=== PATIENT | male | born 1985 | race Caucasian/White ===

== ENCOUNTER 2017-01-08 00:37 | Emergency (ER) | payer OTHER ==
[2017-01-08 00:53] VITALS: BP 132/79
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
--- NOTE | 2017-01-09 17:30 | CR ---
Chest: Two views of the chest were obtained. Comparison: No previous chest x-ray. Heart size and mediastinum are normal. Lungs are clear with no acute infiltrates. Bony structures are within normal limits for the patient's age. Impression: 1. Nothing acute is identified on two-view chest x-ray. Diagnostic code #1
== END 2017-01-08 02:22 | disposition home or self-care (01) ==
LOC: JD.ED 00:37
DX: S20.219A Contusion of unspecified front wall of thorax, initial encounter (principal); Y04.0XXA Assault by unarmed brawl or fight, initial encounter
CPT/HCPCS: 36415; 71020; 71020-26; 80048; 83735; 93005; 99282; 99285-25

== ENCOUNTER 2019-06-26 19:59 | Emergency (ER) | payer OTHER ==
[2019-06-26 20:08] VITALS: BP 111/68; PULSE 74
[2019-06-26] MEDS ORDERED: traMADol 50 MG Tab PO ONE (20:12)
--- NOTE | 2019-06-26 21:15 | EDM.PDOC ---
ED HPI GENERAL MEDICAL PROBLEM - General Chief Complaint: Upper Extremity Injury/Pain Stated Complaint: INJURED LEFT ELBOW Time Seen by Provider: 06/26/19 20:06 Source of Information: Reports: Patient History Limitations: Reports: No Limitations - History of Present Illness INITIAL COMMENTS - FREE TEXT/NARRATIVE: The patient presents after a fall for left elbow pain and right chest pain. He was taking the garbage out and he slipped on the ice and fell and landed on his left elbow and right lateral chest. It knocked the wind out of him. He did not hit his head or hurt his neck. He has no abdominal pain. He has no hematuria. Onset: Sudden Duration: Minutes: Location: Reports: Chest, Upper Extremity, Left (elbow) Quality: Reports: Sharp Severity: Moderate Improves with: Reports: Immobilization Worsens with: Reports: Movement Context: Reports: Trauma (Slipped and fell on the ice) Associated Symptoms: Reports: Chest Pain. Denies: Cough, Fever/Chills, Headaches, Nausea/Vomiting, Shortness of Breath Left Arm Pain Score (Numeric/FACES): 8 - Related Data Allergies Allergy/AdvReac Type Severity Reaction Status Date / Time No Known Allergies Allergy Verified 06/26/19 20:08 Home Meds: Home Meds Hydrocodone/Acetaminophen [Hydrocodon-Acetaminophen 5-325] 1 - 2 each PO Q6HR PRN #6 tablet 06/26/19 [Rx] Past Medical History - Past Health History Medical/Surgical History: Denies Medical/Surgical History Social & Family History - Family History Family Medical History: Noncontributory - Tobacco Use Smoking Status *Q: Never Smoker Second Hand Smoke Exposure: No - Caffeine Use Caffeine Use: Reports: Coffee, Soda - Recreational Drug Use Recreational Drug Use: No Review of Systems - Review of Systems Review Of Systems: See Below Constitutional: Reports: No Symptoms Eyes: Reports: No Symptoms Ears: Reports: No Symptoms Nose: Reports: No Symptoms Mouth/Throat: Reports: No Symptoms Respiratory: Reports: No Symptoms Cardiovascular: Reports: Chest Pain (Right lateral) GI/Abdominal: Reports: No Symptoms ED EXAM, GENERAL - Physical Exam Exam: See Below Exam Limited By: No Limitations General Appearance: Alert, No Apparent Distress Ears: Normal External Exam Nose: Normal Inspection Head: Atraumatic, Normocephalic Neck: Normal Inspection, Supple, Non-Tender Respiratory/Chest: No Respiratory Distress, Lungs Clear, Normal Breath Sounds Cardiovascular: Regular Rate, Rhythm, No Edema, No Murmur, Other (Right lateral chest pain upon palpation with an abrasion) GI/Abdominal: Soft, Non-Tender, No Organomegaly, No Mass Extremities: Other (Pain upon palpation to the left medial elbow with an abrasion. Good sensation and pulses distally.) Course - Vital Signs Last Recorded V/S: Last Vital Signs Temp 97.2 F 06/26/19 20:05 Pulse 74 06/26/19 20:05 Resp 24 H 06/26/19 20:05 BP 111/68 06/26/19 20:05 Pulse Ox 100 06/26/19 20:05 - Orders/Labs/Meds Orders: Active Orders 24 hr Category Date Time Status Elbow Min 3V Lt [CR] Stat Exams 06/26/19 20:12 Taken Ribs 2V wo Chest Rt [CR] Stat Exams 06/26/19 20:11 Taken Meds: Medications Discontinued Medications Generic Name Dose Route Start Last Admin Trade Name Freq PRN Reason Stop Dose Admin Tramadol HCl 50 mg 06/26/19 20:12 06/26/19 20:34 Ultram PO 06/26/19 20:13 50 mg ONETIME ONE Administration - Re-Assessments/Exams Free Text/Narrative Re-Assessment/Exam: 06/26/19 21:12 I did an x-ray of his elbow and right ribs and he has no fracture or pneumothorax. Departure - Departure Time of Disposition: 21:15 Disposition: Home, Self-Care 01 Condition: Good Clinical Impression: Fall Qualifiers: Encounter type: initial encounter Qualified Code(s): W19.XXXA - Unspecified fall, initial encounter Contusion of left elbow Qualifiers: Encounter type: initial encounter Qualified Code(s): S50.02XA - Contusion of left elbow, initial encounter Contusion of rib on right side Qualifiers: Encounter type: initial encounter Qualified Code(s): S20.211A - Contusion of right front wall of thorax, initial encounter - Discharge Information *PRESCRIPTION DRUG MONITORING PROGRAM REVIEWED*: No *COPY OF PRESCRIPTION DRUG MONITORING REPORT IN PATIENT FLAQUITA: No Prescriptions: Hydrocodone/Acetaminophen [Hydrocodon-Acetaminophen 5-325] 1 - 2 each PO Q6HR PRN #6 tablet PRN Reason: Pain Referrals: Tre Griffin Jr, MD [Primary Care Provider] - 1 Week Additional Instructions: Ice the areas that hurt for 15 minutes 3 times per day for 2 days. Take tylenol or motrin as needed for pain. If that does not help, try the hydrocodone. Please return if you are worse. Sepsis Event Note - Evaluation Sepsis Screening Result: No Definite Risk - Focused Exam Vital Signs: Vital Signs Temp Pulse Resp BP Pulse Ox 06/26/19 20:05 97.2 F 74 24 H 111/68 100 Date Exam was Performed: 06/26/19 Time Exam was Performed: 21:08 - My Orders Last 24 Hours: My Active Orders 06/26/19 20:11 Ribs 2V wo Chest Rt [CR] Stat 06/26/19 20:12 Elbow Min 3V Lt [CR] Stat - Assessment/Plan Last 24 Hours: My Active Orders 06/26/19 20:11 Ribs 2V wo Chest Rt [CR] Stat 06/26/19 20:12 Elbow Min 3V Lt [CR] Stat
--- NOTE | 2019-06-27 07:06 | CR ---
Left elbow: Four views of the left elbow were obtained. Comparison: No previous elbow study. No joint effusion is seen. No fracture, dislocation or other bony abnormality is seen. Impression: 1. No abnormality is appreciated on left elbow study. Diagnostic code #1 This report was dictated in [place] Standard Time
--- NOTE | 2019-06-27 07:06 | CR ---
Right ribs: Two views of the right ribs were obtained. Comparison: No prior rib exam. No discrete fracture or other right sided rib abnormality is appreciated. Impression: 1. No abnormality is appreciated on two-view right rib exam. Diagnostic code #1 This report was dictated in [place] Standard Time
== END 2019-06-26 21:25 | disposition home or self-care (01) ==
LOC: JD.ED 19:59
DX: S20.211A Contusion of right front wall of thorax, initial encounter (principal); S50.02XA Contusion of left elbow, initial encounter; W00.0XXA Fall on same level due to ice and snow, initial encounter
CPT/HCPCS: 71100; 73080; 99284; A9270